=== PATIENT | female | born 2000 | race Caucasian/White ===

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

== ENCOUNTER → 2018-08-13 | Outpatient (REF) | payer OTHER | LOC: M SFHCLERA 15:42 | DX: J35.8 Other chronic diseases of tonsils and adenoids (principal) ==

== ENCOUNTER 2018-09-22 16:04 | Emergency (ER) | payer OTHER ==
[~2018-09-22] VITALS: Ht 162.6 cm; Wt 77.3 kg
[2018-09-22] MEDS ORDERED: AMOXICILLIN 500 MG CAP PO ONE (17:45)
[2018-09-22] MEDS ORDERED: dexameTHASONE 20 MG/5 ML VIAL (J1100) IM ONE (17:45)
[2018-09-22] MEDS ORDERED: AMOX500C PO (17:50)
[2018-09-22 18:36] VITALS: BP 120/68
== END 2018-09-22 18:38 | disposition home or self-care (01) ==
LOC: M ED 16:04
DX: J02.0 Streptococcal pharyngitis (principal); Z91.018 Allergy to other foods
CPT/HCPCS: 87880; 96372; 99283; J1100

== ENCOUNTER → 2019-10-13 | Outpatient (REF) | payer OTHER ==
[~2019-10-13] MED LIST: AMOX500C PO
[2019-10-15 16:59] LABS: CREATININE, URINE 32.3 MG/DL
[2019-10-15 17:00] LABS: CREATININE CLEARANCE, URINE 84.1 ML/MIN (75-115); CREATININE, SERUM 0.8 MG/DL (0.6-1.0)
== END ==
LOC: M LAB REF 15:42
PROVIDERS: ATTEND Internal Medicine Nephrology
DX: Z52.4 Kidney donor (principal)

== ENCOUNTER → 2019-10-15 | Outpatient (REF) | payer OTHER ==
[2019-10-15 16:23] LABS: CREATININE FOR GFR 0.77 MG/DL (0.55-1.30); GLOMERULAR FILTRATION RATE > 60.0 (>60)
[2019-10-15 16:33] LABS: APPEARANCE, URINE HAZY (CLEAR); BACTERIA, URINE AUTO 2+ (NEGATIVE); BILIRUBIN, URINE AUTO NEGATIVE (NEGATIVE); BLOOD, URINE BLOOD NEGATIVE (NEGATIVE); COLOR, URINE YELLOW (YELLOW); GLUCOSE, URINE (UA) AUTO NEGATIVE (NEGATIVE); KETONE, URINE AUTO NEGATIVE (NEGATIVE); LEUKOCYTE ESTERASE, URINE AUTO NEGATIVE (NEGATIVE); MUCUS, URINE SMALL (NEGATIVE); NITRITE, URINE AUTO NEGATIVE (NEGATIVE); PROTEIN, URINE AUTO NEGATIVE (NEGATIVE); RBC, URINE AUTO 2 /HPF (0-3); SPECIFIC GRAVITY URINE AUTO 1.021 (1.002-1.035); SQUAMOUS EPITHELIAL CELL UR AU 9 /HPF (0-6); UROBILINOGEN, URINE AUTO 0.2 mg/dL (0.0-2.0); WBC, URINE AUTO 2 /HPF (0-3)
[2019-10-15 16:35] LABS: MALB URINE SIEMENS 9.2 MG/L; MAU/CREAT RATIO 4.7 MCG/MG (0.0-30.0)
== END ==
LOC: M LAB REF 15:56
PROVIDERS: ATTEND Internal Medicine Nephrology
DX: Z52.4 Kidney donor (principal)

== ENCOUNTER → 2019-11-14 | Outpatient (CLI) | payer OTHER ==
[2019-11-14 17:32] LABS: TOTAL VOLUME, URINE 1700 ML
[2019-11-14 18:02] LABS: CREATININE FOR GFR 0.72 MG/DL (0.55-1.30); GLOMERULAR FILTRATION RATE > 60.0 (>60)
[2019-11-14 18:11] LABS: CREATININE 24 HOUR, URINE 1232.5 MG/24HR (600-1800); CREATININE, URINE 72.5 MG/DL; MALB URINE SIEMENS < 5.0 MG/L; MAU/CREAT RATIO 6.8 MCG/MG (0.0-30.0); URINE TOTAL PROTEIN < 5.0 MG/DL (0-12)
[2019-11-14 18:48] LABS: APPEARANCE, URINE CLEAR (CLEAR); BACTERIA, URINE AUTO 2+ (NEGATIVE); BILIRUBIN, URINE AUTO NEGATIVE (NEGATIVE); BLOOD, URINE BLOOD NEGATIVE (NEGATIVE); COLOR, URINE YELLOW (YELLOW); GLUCOSE, URINE (UA) AUTO NEGATIVE (NEGATIVE); KETONE, URINE AUTO NEGATIVE (NEGATIVE); LEUKOCYTE ESTERASE, URINE AUTO NEGATIVE (NEGATIVE); MUCUS, URINE SMALL (NEGATIVE); NITRITE, URINE AUTO NEGATIVE (NEGATIVE); PROTEIN, URINE AUTO NEGATIVE (NEGATIVE); RBC, URINE AUTO 1 /HPF (0-3); SPECIFIC GRAVITY URINE AUTO 1.009 (1.002-1.035); SQUAMOUS EPITHELIAL CELL UR AU 2 /HPF (0-6); UROBILINOGEN, URINE AUTO 0.2 mg/dL (0.0-2.0); WBC, URINE AUTO 0 /HPF (0-3)
== END ==
LOC: M LAB 16:08
PROVIDERS: ATTEND Internal Medicine Nephrology
DX: Z00.5 Encounter for examination of potential donor of organ and tissue (principal)